=== PATIENT | female | born 1995 | race African-American/Black ===

== ENCOUNTER 2021-12-14 08:05 | Inpatient (IN) ==
[2021-12-14] MEDS ORDERED: Lactated Ringers 1000 ml BAG 1,000 ML IV ONE (08:59)
[2021-12-14] MEDS ORDERED: Promethazine INJ(RESTRICTED) 25 MG/ML 1 ml VIAL IV PRN (08:59)
[2021-12-14] MEDS ORDERED: Nalbuphine 10 MG/ML 1 ML VIAL IV PRN (08:59)
[2021-12-14] MEDS ORDERED: Buffered Lidocaine 1% SYRIN 1 ml INTRADERM ONE (08:59)
[2021-12-14] MEDS ORDERED: Lactated Ringers 1000 ml BAG 1,000 ML IV SCH (09:00)
[2021-12-14] MEDS: miSOPROStol 100 mcg TAB VAGINAL SCH ×2 (09:46→19:39)
[2021-12-14 09:51] LABS: ABS Basophils 0.1 10^3/ul (0-0.2); ABS Eosinophils 0.2 10^3/ul (0-0.6); ABS Lymphocytes 2.4 10^3/ul (1.0-4.8); ABS Monocytes 0.5 10^3/ul (0-0.8); ABS Neutrophils 5.5 10^3/ul (1.5-7.7); Hematocrit 35 % (35-47); Hemoglobin 11.1 g/dL (12.0-16.0); Mean Corpuscular HGB Conc 32 g/dL (31-36); Mean Corpuscular Hemoglobin 25 pg (27-31); Mean Corpuscular Volume 79 fL (80-97); Mean Platelet Volume 10.1 fL (7.4-10.4); Platelet Count 226 10^3/uL (150-450); Red Blood Count 4.41 10^6 /uL (3.70-4.87); Red Cell Distribution Width 14 % (10-15); White Blood Count 8.6 10^3/uL (3.5-10.8)
[2021-12-14 10:14] LABS: Albumin 3.3 g/dL (3.2-5.2); Total Bilirubin 0.5 mg/dL (0.2-1.0)
[2021-12-14 10:20] LABS: Albumin/Globulin Ratio 1.1 (1-3); Total Protein 6.3 g/dL (6.4-8.9); Uric Acid 4.2 mg/dL (2.3-6.6); eGFR CKD-EPI 131.5 (>60)
[2021-12-14 12:46] LABS: Urine Benzodiazepine Screen None Detected (None Detect); Urine Cannabinoids Screen None Detected (None Detect); Urine Opiates Screen None Detected (None Detect)
[2021-12-14] MEDS ORDERED: Dinoprostone 10 MG VAG.SUPP VAGINAL ONE (19:37)
[2021-12-15] MEDS ORDERED: Oxytocin in LR 20,000 MILLI.UNIT/1,000 ML BAG IV SCH ×2 (10:00→13:45)
[2021-12-15] MEDS ORDERED: OBEPIDURAL (200 ML) 200 ML EPIDURAL ONE (11:02)
[2021-12-15] MEDS ORDERED: Lidocaine/Epinephrin 1.5%/200 5 ML AMP INJ ONE (11:03)
[2021-12-15] MEDS ORDERED: Phenylephrine 40 mcg/mL 10mL (400mcg) SYRINGE IV PUSH PRN ×2 (12:08)
[2021-12-15] MEDS ORDERED: Lactated Ringers 1000 ml BAG 1,000 ML IV ONE (12:08)
[2021-12-15] MEDS ORDERED: Sodium Citrate/Citric Acid LIQ 15 ML UDC PO PRN (12:08)
[2021-12-15 12:59] LABS: Urine Appearance Clear; Urine Bilirubin Negative (Negative); Urine Blood Negative (Negative); Urine Color Yellow; Urine Glucose Negative (Negative); Urine Ketones Negative (Negative); Urine Nitrite Negative (Negative); Urine Protein Negative (Negative); Urine Specific Gravity 1.013 (1.002-1.030); Urine Urobilinogen Negative (Negative)
[2021-12-15] MEDS ORDERED: Lactated Ringers 1000 ml BAG 1,000 ML IV SCH ×2 (13:00→14:00)
[2021-12-15] MEDS ORDERED: OBEPIDURAL (200 ML) 200 ML EPIDURAL SCH (13:00)
[2021-12-15] MEDS ORDERED: Glycerin ADULT 2.4 gm SUPP PR PRN (13:37)
[2021-12-15] MEDS: Witch Hazel PAD JAR TOPICAL PRN (18:17)
[2021-12-15] MEDS: Dibucaine 1% OINT 28.35 GM TUBE PR PRN (18:17)
[2021-12-16] MEDS: Witch Hazel PAD JAR TOPICAL PRN (03:39)
[2021-12-16] MEDS: Dibucaine 1% OINT 28.35 GM TUBE PR PRN (03:39)
[2021-12-16 08:05] LABS: ABS Basophils 0.1 10^3/ul (0-0.2); ABS Eosinophils 0.1 10^3/ul (0-0.6); ABS Lymphocytes 2.6 10^3/ul (1.0-4.8); ABS Monocytes 0.5 10^3/ul (0-0.8); Eosinophil % 1.2 %; Hematocrit 29 % (35-47); Hemoglobin 9.3 g/dL (12.0-16.0); Lymphocyte % 27.9 %; Mean Corpuscular HGB Conc 32 g/dL (31-36); Mean Corpuscular Hemoglobin 26 pg (27-31); Mean Corpuscular Volume 80 fL (80-97); Mean Platelet Volume 10.3 fL (7.4-10.4); Platelet Count 190 10^3/uL (150-450); Red Blood Count 3.59 10^6 /uL (3.70-4.87); Red Cell Distribution Width 14 % (10-15); White Blood Count 9.2 10^3/uL (3.5-10.8)
[2021-12-16] MEDS ORDERED: Measles, Mumps,Rubella VACC 0.5 ML/VIAL SUBCUT ONE (09:00)
[2021-12-16 10:47] VITALS: BP 113/50
[2021-12-16] MEDS ORDERED: medroxyPROGESTERone ACETATE 150 MG/ML VIAL IM ONE (12:00)
== END 2021-12-16 17:08 | disposition home or self-care (01) | DRG 560 ==
LOC: MCHOBOUT 08:05 → MCHOB 08:57
PROVIDERS: ADMIT Obstetrics & Gynecology; ATTEND Obstetrics & Gynecology